=== PATIENT | male | born 1955 | race Caucasian/White ===

== ENCOUNTER 2025-01-25 12:34 | Day surgery (SDC) | payer BC ==
[2025-01-25] MEDS ORDERED: Sodium Bicarbonate 2.5 MEQ/5 ML SDV ONE (12:55)
== END 2025-01-25 13:40 | disposition home or self-care (01) ==
LOC: CSHULT 12:34
PROVIDERS: ATTEND Specialist
PROC: 0G9 Endocrine System, Drainage (ICD-10-PCS; principal; 2025-01-25)
DX: E04.1 Nontoxic single thyroid nodule (principal); H90.3 Sensorineural hearing loss, bilateral; H93.13 Tinnitus, bilateral
CPT/HCPCS: 10005; 88173